=== PATIENT | male | born 2000 | race Caucasian/White ===

== ENCOUNTER 2023-06-03 16:53 | Emergency (ER) | payer SELFPAY ==
[2023-06-03 17:24] VITALS: BP 123/66; PULSE 94; RESP 17; TEMP 36.5; O2SAT 100; BMI 20.9
--- NOTE | 2023-06-03 17:33 | CTR_ITS ---
PROCEDURE INFORMATION: Exam: CT Abdomen And Pelvis With Contrast Exam date and time: 06/03/2023 5:53 PM Age: 23 years old Clinical indication: Abdominal pain; Localized; Right lower quadrant (rlq); Additional info: Abd pain TECHNIQUE: Imaging protocol: Computed tomography of the abdomen and pelvis with contrast. Radiation optimization: All CT scans at this facility use at least one of these dose optimization techniques: automated exposure control; mA and/or kV adjustment per patient size (includes targeted exams where dose is matched to clinical indication); or iterative reconstruction. Contrast material: OMNI 350; Contrast volume: 100 ml; Contrast route: INTRAVENOUS (IV); COMPARISON: No relevant prior studies available. RADIATION DOSE METRICS: Total DLP (mGy-cm): 390.45 FINDINGS: Lungs: Subsegmental bibasilar atelectasis. The visualized lung bases are otherwise grossly clear. Diaphragm: No evidence of diaphragmatic defect. There is fluid filling the esophagus compatible with GERD. Liver: No focal hepatic lesion. Gallbladder and bile ducts: Unremarkable. No intra-hepatic or extra-hepatic biliary dilatation. Pancreas: Unremarkable. Spleen: Unremarkable. Adrenal glands: Unremarkable. Kidneys and ureters: No renal parenchymal abnormality. No hydronephrosis or ureteral stone. Stomach and bowel: No evidence of bowel obstruction or gross perienteric inflammatory changes. There are multiple loops of mildly prominent and thickened small bowel compatible with a nonspecific infectious or inflammatory enteritis. Appendix: Normal appendix. Intraperitoneal space: No evidence of free air or fluid collection. Vasculature: No aneurysmal dilatation or dissection of the abdominal aorta. The celiac trunk, SMA and MARGARET are grossly patent. No evidence of IVC thrombus. The portal vein, SMV and splenic veins are grossly patent. Lymph nodes: No adenopathy. Urinary bladder: Grossly unremarkable. Reproductive: Grossly unremarkable. Bones/joints: No evidence of acute fracture or aggressive osseous lesion. Soft tissues: No evidence of fluid collection or hematoma in the superficial soft tissues. CT/CT abdomen pelvis w con* [id number] IMPRESSION: 1. Findings compatible with an infectious or inflammatory enteritis. 2. Fluid filling the esophagus compatible with GERD.
--- NOTE | 2023-06-03 17:34 | ED_ITS ---
Documented by User: Evelyne Dooley MD 06/03/23 17:35 HPI - Abdominal Pain 2 General: Chief Complaint: Abdominal Pain Stated Complaint: Abd pain/ N/V Time Seen by Provider: 06/03/23 17:29 Source: patient Mode of arrival: ambulatory Limitations: no limitations History of Present Illness: 23-year-old male states been having righ t lower quadrant abdominal pain since yesterday. States that pains have been sharp in nature he rates it an 8 out of 10 currently and they worsen he had vomiting he denies any fevers denies any radiation of his pain. Associated Symptoms: Reports nausea and vomiting; Denies chills, diarrhea, dysuria and fever(s) Review of Systems 2 Const: Denies: fever(s), chills, body aches or change in appetite ENMT: Denies: throat pain or dental pain Card: Denies: chest pain Resp: Denies: dyspnea GI: Reports: abdominal pain, nausea and vomiting; Denies: diarrhea : Denies: dysuria Musc: Denies: neck pain or back pain Skin/Breast: Denies: rash Neuro: Denies: headache(s) Physical Exam 2 Const: COMMON NORMALS: no acute distress, patient oriented x3 and healthy appearing HENMT: COMMON NORMALS: normocephalic and atraumatic HEAD & SCALP: n ormocephalic and atraumatic Neck/C-Spine: COMMON NORMALS: full ROM and supple Chest: COMMONS NORMALS: normal inspection of the chest Resp: COMMON NORMALS: normal respiratory effort and No use of accessory muscles Cardio: COMMON NORMALS: regular rate RATE: regular rate GI: COMMON NORMALS: Normal to inspection, nondistended, normoactive bowel sounds present, Soft to palpation and no masses PALPATION: Yes Soft to palpation and Yes Tenderness to palpation present (GI) Details: RLQ Extremity: COMMON NORMALS: normal to inspection and full ROM Neuro: COMMON NORMALS: patient oriented x3, moves all extremities and no focal motor deficits Psych: COMMON NORMALS: mental status grossly normal, Normal thought process present and cooperative THOUGHT PROCESS: Normal thought process present Skin: COMMON NORMALS: no rashes or lesions noted and no wounds GENERAL SKIN EXAM: no rashes or lesions noted Course 2 Vital Signs: Vital signs: Vital Signs Temperature 97.7 F 06/03/23 17:24 Pulse Rate 75 06/03/23 19:40 Respiratory Rate 15 06/03/23 19:40 Blood Pressure 124/81 06/03/23 19:40 Pulse Oximetry 99 06/03/23 19:40 Oxygen Delivery Me thod Room Air 06/03/23 17:24 MDM - Abdominal Pain Lab Data 06/03/23 17:36 06/03/23 17:36 Labs/Radiology: Radiology Impressions Abdomen/Pelvis CT 06/03/23 17:33 IMPRESSION: 1. Findings compatible with an infectious or inflammatory enteritis. 2. Fluid filling the esophagus compatible with GERD. Laboratory Results WBC 12.02 10^3/uL (3.29-11.43) H 06/03/23 17:36 RBC 5.10 10^6/uL (3.85-5.65) 06/03/23 17:36 Hgb 15.50 g/dL (11.27-16.99) 06/03/23 17:36 Hct 47.0 % (37-53) 06/03/23 17:36 MCV 92.2 fl (82-101) 06/03/23 17:36 MCH 30.4 pg (27-33) 06/03/23 17:36 MCHC 33.0 g/dL (30-55) 06/03/23 17:36 RDW 12.6 % (12.1-15.1) 06/03/23 17:36 Plt Count 256 10^3/cmm (157-399) 06/03/23 17:36 MPV 10.5 fL (7.4-10.4) H 06/03/23 17:36 Neut % (Auto) 94.7 % 06/03/23 17:36 Lymph % (Auto) 0.9 % 06/03/23 17:36 [place] % (Auto) 3.2 % 06/03/23 17:36 Eos % (Auto) 0.8 % 06/03/23 17:36 Baso % (Auto) 0.2 % 06/03/23 17:36 Neut # (Auto) 11.36 10^3/uL (1.8-7.7) H 06/03/23 17:36 Lymph # (Auto) 0.1 10^3/uL (0.8-4.8) L 06/03/23 17:36 [place] # (Auto) 0.4 10^3/uL (0.2-0.9) 06/03/23 17:36 Eos # (Auto) 0.1 10^3/uL (0.0-0.8) 06/03/23 17:36 Baso # (Auto) 0.0 10^3/uL (0.0-0.1) 06/03/23 17:36 Nucleated RBC % (auto) 0 % 06/03/23 17:36 Nucleated RBCs # 0.0 /100WBC 06/03/23 17:36 Sodium 138 mmol/L (136-145) 06/03/23 17:36 Potassium 4.1 mmol/L (3.5-5.1) 06/03/23 17:36 Chloride 101 mmol/L (98-107) 06/03/23 17:36 Carbon Dioxide 27 mmol/L (22-29) 06/03/23 17:36 Anion Gap 14.1 (5-19) 06/03/23 17:36 BUN 13 mg/dL (6-20) 06/03/23 17:36 Creatinine 1.0 mg/dL (0.7-1.2) 06/03/23 17:36 GFR Calculation 92.6 mL/min (90-130) 06/03/23 17:36 Glucose 133 mg/dL (65-115) H 06/03/23 17:36 Calculated Osmolality 288 mOsm/kg (285-295) 06/03/23 17:36 Calcium 9.6 mg/dL (8.5-10.5) 06/03/23 17:36 Total Bilirubin 0.8 mg/dL (0.15-1.2) 06/03/23 17:36 AST 15 U/L (0-40) 06/03/23 17:36 ALT 13 U/L (0-41) 06/03/23 17:36 Alkaline Phosphatase 89 U/L (40-130) 06/03/23 17:36 Total Protein 7.4 g/dL (6.6-8.7) 06/03/23 17:36 Albumin 4.5 g/dL (3.5-5.2) 06/03/23 17:36 Globulin 2.9 g/dL (1.3-4.6) 06/03/23 17:36 Lipase 25 U/L (13-60) 06/03/23 17:36 Discharge Plan Discharge Patient Disposition: Home Clinical Impression: Enteritis Condition: Stable Prescriptions: New ketorolac 10 mg tablet 10 mg PO TID PRN (Reason: pain) Qty: 10 0RF ondansetron 4 mg tablet,disintegrating 4 mg PO Q6H PRN (Reason: nausea and vomiting) Qty: 14 0RF metronidazole 500 mg tablet 500 mg PO BID Qty: 14 0RF ciprofloxacin HCl 500 mg tablet 500 mg PO BID Qty: 14 0RF Discharge Orders: Discharge ED (Routine); Ordered 06/03/23 Ordered By: Nimesh Estevez Patient Instructions: Enteritis (ED), Opioid Safety, Pain Management Activity Restrictions/Additional Instructions: Your CT scan in the emergency department today showed a normal appendix. It did show inflammatory change of your small intestine consistent with what we call an enteritis. This is sometimes due to a virus, other times due to a bacteria. He will be given antibiotics, pain medication and nausea medication. Follow a liquid diet for the next 24 to 48 hours. If you have not vomited in 24 hours, and your pain is significantly less, you may begin to add solid food back into your diet. Return for fever greater than 100 despite 2 doses of antibiotics, worsening pain despite treatment, vomiting liquids or medications, or any other concerning symptoms. See your doctor next week. 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 This patient has right-sided abdominal pain, and vomiting. He is afebrile here. White blood cell count is 12. 95% neutrophils. CT scan shows a normal appendix. There are multiple loops of mildly prominent small bowel with thickening compatible with nonspecific infectious or inflammatory enteritis. Given his white count and left shift, he will be treated with antibiotics although this may be viral. He will get a dose of dexamethasone here for inflammatory changes. Lab Data 06/03/23 17:36 06/03/23 17:36 Labs/Radiology: Radiology Impressions Abdomen/Pelvis CT 06/03/23 17:33 IMPRESSION: 1. Findings compatible with an infectious or inflammatory enteritis. 2. Fluid filling the esophagus compatible with GERD. Laboratory Results WBC 12.02 10^3/uL (3.29-11.43) H 06/03/23 17:36 RBC 5.10 10^6/uL (3.85-5.65) 06/03/23 17:36 Hgb 15.50 g/dL (11.27-16.99) 06/03/23 17:36 Hct 47.0 % (37-53) 06/03/23 17:36 MCV 92.2 fl (82-101) 06/03/23 17:36 MCH 30.4 pg (27-33) 06/03/23 17:36 MCHC 33.0 g/dL (30-55) 06/03/23 17:36 RDW 12.6 % (12.1-15.1) 06/03/23 17:36 Plt Count 256 10^3/cmm (157-399) 06/03/23 17:36 MPV 10.5 fL (7.4-10.4) H 06/03/23 17:36 Neut % (Auto) 94.7 % 06/03/23 17:36 Lymph % (Auto) 0.9 % 06/03/23 17:36 [place] % (Auto) 3.2 % 06/03/23 17:36 Eos % (Auto) 0.8 % 06/03/23 17:36 Baso % (Auto) 0.2 % 06/03/23 17:36 Neut # (Auto) 11.36 10^3/uL (1.8-7.7) H 06/03/23 17:36 Lymph # (Auto) 0.1 10^3/uL (0.8-4.8) L 06/03/23 17:36 [place] # (Auto) 0.4 10^3/uL (0.2-0.9) 06/03/23 17:36 Eos # (Auto) 0.1 10^3/uL (0.0-0.8) 06/03/23 17:36 Baso # (Auto) 0.0 10^3/uL (0.0-0.1) 06/03/23 17:36 Nucleated RBC % (auto) 0 % 06/03/23 17:36 Nucleated RBCs # 0.0 /100WBC 06/03/23 17:36 Sodium 138 mmol/L (136-145) 06/03/23 17:36 Potassium 4.1 mmol/L (3.5-5.1) 06/03/23 17:36 Chloride 101 mmol/L (98-107) 06/03/23 17:36 Carbon Dioxide 27 mmol/L (22-29) 06/03/23 17:36 Anion Gap 14.1 (5-19) 06/03/23 17:36 BUN 13 mg/dL (6-20) 06/03/23 17:36 Creatinine 1.0 mg/dL (0.7-1.2) 06/03/23 17:36 GFR Calculation 92.6 mL/min (90-130) 06/03/23 17:36 Glucose 133 mg/dL (65-115) H 06/03/23 17:36 Calculated Osmolality 288 mOsm/kg (285-295) 06/03/23 17:36 Calcium 9.6 mg/dL (8.5-10.5) 06/03/23 17:36 Total Bilirubin 0.8 mg/dL (0.15-1.2) 06/03/23 17:36 AST 15 U/L (0-40) 06/03/23 17:36 ALT 13 U/L (0-41) 06/03/23 17:36 Alkaline Phosphatase 89 U/L (40-130) 06/03/23 17:36 Total Protein 7.4 g/dL (6.6-8.7) 06/03/23 17:36 Albumin 4.5 g/dL (3.5-5.2) 06/03/23 17:36 Globulin 2.9 g/dL (1.3-4.6) 06/03/23 17:36 Lipase 25 U/L (13-60) 06/03/23 17:36 All radiology interpretation(s) finalized by discharge Discharge Plan Discharge Patient Disposition: Home Clinical Impression: Enteritis Condition: Stable Prescriptions: New ketorolac 10 mg tablet 10 mg PO TID PRN (Reason: pain) Qty: 10 0RF ondansetron 4 mg tablet,disintegrating 4 mg PO Q6H PRN (Reason: nausea and vomiting) Qty: 14 0RF metronidazole 500 mg tablet 500 mg PO BID Qty: 14 0RF ciprofloxacin HCl 500 mg tablet 500 mg PO BID Qty: 14 0RF Discharge Orders: Discharge ED (Routine); Ordered 06/03/23 Ordered By: Nimesh Estevez Patient Instructions: Enteritis (ED), Opioid Safety, Pain Management Activity Restrictions/Additional Instructions: Your CT scan in the emergency department today showed a normal appendix. It did show inflammatory change of your small intestine consistent with what we call an enteritis. This is sometimes due to a virus, other times due to a bacteria. He will be given antibiotics, pain medication and nausea medication. Follow a liquid diet for the next 24 to 48 hours. If you have not vomited in 24 hours, and your pain is significantly less, you may begin to add solid food back into your diet. Return for fever greater than 100 despite 2 doses of antibiotics, worsening pain despite treatment, vomiting liquids or medications, or any other concerning symptoms. See your doctor next week. 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
[2023-06-03] MEDS: sodium chloride 0.9% 1,000 ML 999 ML IV (17:38)
[2023-06-03] MEDS: ondansetron 2 mg/ML SDV 2 mL 4 MG IVP (17:39)
[2023-06-03] MEDS: morphine 4 mg/mL SDV 1 mL IVP ×2 (17:40→18:41)
[2023-06-03 17:41] LABS: Basophils % 0.2 %; Eosinophils # 0.1 10^3/uL (0.0-0.8); Eosinophils % 0.8 %; Lymphocytes # 0.1 10^3/uL (0.8-4.8); Lymphocytes % 0.9 %; Mean Corpuscular Hemoglobin 30.4 pg (27-33); Mean Corpuscular Volume 92.2 fl (82-101); Mean Platelet Volume 10.5 fL (7.4-10.4); Monocytes # 0.4 10^3/uL (0.2-0.9); Monocytes % 3.2 %; Neutrophils # 11.36 10^3/uL (1.8-7.7); Neutrophils % 94.7 %; Nucleated Red Blood Cells % 0 %; Platelet Count 256 10^3/cmm (157-399); Red Cell Distribution Width 12.6 % (12.1-15.1); White Blood Count 12.02 10^3/uL (3.29-11.43)
[2023-06-03 18:00] LABS: Alanine Aminotransferase 13 U/L (0-41); Albumin Level 4.5 g/dL (3.5-5.2); Alkaline Phosphatase 89 U/L (40-130); Anion Gap 14.1 (5-19); Aspartate Amino Transferase 15 U/L (0-40); Blood Urea Nitrogen 13 mg/dL (6-20); Calcium 9.6 mg/dL (8.5-10.5); Carbon Dioxide 27 mmol/L (22-29); Chloride 101 mmol/L (98-107); Creatinine Clr Calc Pharmacy 121.3596; Globulin 2.9 g/dL (1.3-4.6); Glomerular Filtration Rate 92.6 mL/min (90-130); Glucose 133 mg/dL (65-115); Lipase 25 U/L (13-60); Osmolality Calculated 288 mOsm/kg (285-295); Potassium 4.1 mmol/L (3.5-5.1); Sodium 138 mmol/L (136-145); Total Bilirubin 0.8 mg/dL (0.15-1.2); Total Protein 7.4 g/dL (6.6-8.7)
[2023-06-03] MEDS: iohexol 350 mg/mL 500 mL Btl (per mL) IV (18:00)
[2023-06-03] MEDS: ketorolac 30 mg/mL INJ IVP (18:40)
[2023-06-03 18:41] VITALS: RESP 16; O2SAT 98
[2023-06-03] MEDS: dexamethasone 4 mg/mL INJ 8 MG IVP (19:25)
[2023-06-03 19:40] VITALS: BP 124/81; PULSE 75; RESP 15; O2SAT 99
== END 2023-06-03 19:41 | disposition home or self-care (01) ==
PROVIDERS: Emergency Medicine; Emergency Provider Emergency Medicine
DX: K52.9 Noninfective gastroenteritis and colitis, unspecified (principal)
CPT/HCPCS: 74177; 80053; 83690; 85025; 96374; 96375; 96376; 99285; J1100; J1885; J2270; J2405; J7030; Q9967

== ENCOUNTER 2023-06-05 03:08 | Emergency (ER) | payer SELFPAY ==
[2023-06-05] VITALS (9 sets, daily range): BP systolic 109–141; BP diastolic 61–89; PULSE 58–101; RESP 14–20; TEMP 36.6; O2SAT 95–99; BMI 20.9
[2023-06-05 03:47] LABS: Basophils % 0.3 %; Eosinophils # 0.3 10^3/uL (0.0-0.8); Hematocrit 41.9 % (37-53); Lymphocytes % 13.5 %; Mean Corpuscular HGB Conc 34.1 g/dL (30-55); Mean Corpuscular Hemoglobin 30.8 pg (27-33); Mean Corpuscular Volume 90.1 fl (82-101); Mean Platelet Volume 10.8 fL (7.4-10.4); Monocytes # 0.8 10^3/uL (0.2-0.9); Monocytes % 11.6 %; Neutrophils # 5.11 10^3/uL (1.8-7.7); Neutrophils % 70.3 %; Nucleated Red Blood Cells % 0 %; Platelet Count 256 10^3/cmm (157-399); Red Blood Count 4.65 10^6/uL (3.85-5.65); Red Cell Distribution Width 12.4 % (12.1-15.1); White Blood Count 7.26 10^3/uL (3.29-11.43)
[2023-06-05 04:02] LABS: Alanine Aminotransferase 15 U/L (0-41); Alkaline Phosphatase 78 U/L (40-130); Anion Gap 17.1 (5-19); Aspartate Amino Transferase 17 U/L (0-40); Blood Urea Nitrogen 11 mg/dL (6-20); Carbon Dioxide 25 mmol/L (22-29); Chloride 100 mmol/L (98-107); Creatinine Clr Calc Pharmacy 121.3596; Glomerular Filtration Rate 92.6 mL/min (90-130); Glucose 109 mg/dL (65-115); Lipase 33 U/L (13-60); Osmolality Calculated 288 mOsm/kg (285-295); Potassium 3.1 mmol/L (3.5-5.1); Sodium 139 mmol/L (136-145); Total Bilirubin 0.4 mg/dL (0.15-1.2)
[2023-06-05] MEDS: ondansetron 2 mg/ML SDV 2 mL 4 MG IVP (04:12)
[2023-06-05 04:13] LABS: Gastricult Occult Blood Positive (Negative)
[2023-06-05] MEDS: sodium chloride 0.9% 1,000 ML 999 ML IV (04:13)
[2023-06-05 04:16] LABS: Amphetamines Screen Urine Positive (Negative); Barbiturates Screen Urine Negative (Negative); Benzodiazepines Screen Urine Negative (Negative); Cocaine Screen Urine Negative (Negative); Opiate Screen Urine Positive (Negative); PCP Screen Urine Negative (Negative); THC Screen Urine Positive (Negative)
[2023-06-05 04:34] LABS: Bilirubin Urine 1+ (Negative); Blood Urine Neg (Negative); Glucose Urine UA Norm (Normal); Ketones Urine 1+ (Negative); Leukocyte Esterase Urine Trace (Negative); Nitrate Urine Negative (Negative); Protein Urine 1+ (Negative); Urine Appearance Clear (CLEAR); Urine Color Dark Yellow (Yellow); Urobilinogen Urine 8 mg/dL (Negative); pH Urine 6 (5-7)
[2023-06-05 04:35] LABS: Add Urine Culture? No; Bacteria Urine TRACE /hpf; Mucus Urine 3+ /hpf; RBC Urine 0-4 /hpf (0-2); WBC Urine 0-4 /hpf (0-5)
--- NOTE | 2023-06-05 07:02 | ED_ITS ---
HPI - Abdominal Pain 2 General: Chief Complaint: Abdominal Pain Stated Complaint: right abdomen pain,n/v, fever Time Seen by Provider: 06/05/23 03:36 History of Present Illness: 23-year-old male presents emergency depa rtment with complaints of feeling sick for the previous 3 days. He states that he has been seen here previously and diagnosed with gastroenteritis after receiving a CAT scan and ER evaluation at that time. He states he initially felt better yesterday but then felt like he became worse. He states he is having several episodes of nausea and vomiting and abdominal pain. He denies any recreational or illicit drug use. He states he has vomited several times and feels as though he is intermittently vomiting blood. Associated Symptoms: Reports hematemesis, nausea and vomiting Review of Systems 2 General: Reports: 10 or more systems reviewed and unremarkable except in HPI and below Card: Denies: chest pain or irregular heart rhythm Resp: Denies: dyspnea GI: Reports: abdominal pain, nausea, vomiting and hematemesis Physical Exam 2 Narrative: EXAM NARRATIVE: Constitutional: the patient appears well nourished and of normal development. Vital signs as documented. No acute distress at present. Alert and oriented-to person, place, time and situation. Head, eyes, ears, nose, mouth, throat: Normocephalic, atraumatic. Pupils-equal, round, reactive to light. No scleral icterus. Normal-appearing external ears. Normal appearing nasal turbinates, no drainage. No obvious oral lesions, posterior oropharynx without erythema or exudates. Neck: Supple, trachea is midline, no lymphadenopathy, no jugular venous distension, thyromegaly, or carotid bruits. Carotid upstrokes are brisk bilaterally. Lungs: clear to auscultation to all lung sherman. Symmetrical rise and fall of chest, no obvious signs of increased work of breathing at present. Cardiac: Regular rate and rhythm, positive S1, S2. No murmurs, rubs or gallops that I can appreciate Abdomen: Soft, non-tender to palpation, normal active bowel sounds to all quadrants. No palpable masses, no organomegaly and abdominal bruits. Extremities: 2+ pulses in the upper extremities that are equal bilaterally, 2+ pulses in the lower extremities that are equal bilaterally. Non-edematous. Moves all extremities well, sensation to all extremities are noted. Skin: Warm, dry, intact. Course 2 Vital Signs: Vital signs: Vital Signs Temperature 97.9 F 06/05/23 03:22 Pulse Rate 65 06/05/23 06:30 Respiratory Rate 15 06/05/23 06:30 Blood Pressure 141/83 06/05/23 06:30 Pulse Oximetry 97 06/05/23 06:30 Oxygen Delivery Me thod Room Air 06/05/23 06:30 MDM - Abdominal Pain Medical Decision Making Physical exam completed and documented, I will obtain laboratory evaluation to include a CBC, CMP, lipase, urinalysis, and a Gastroccult to evaluate for possible differential diagnosis of bowel obstruction, incarcerated hernia, abdominal wall strain, abdominal wall hematoma, constipation., Colitis, acute appendicitis, diverticulitis. Medical Records I reviewed the patient's medical records. Lab Data I reviewed the patient's lab results. 06/05/23 03:35 06/05/23 03:35 Labs/Radiology: Laboratory Results WBC 7.26 10^3/uL (3.29-11.43) 06/05/23 03:35 RBC 4.65 10^6/uL (3.85-5.65) 06/05/23 03:35 Hgb 14.30 g/dL (11.27-16.99) 06/05/23 03:35 Hct 41.9 % (37-53) 06/05/23 03:35 MCV 90.1 fl (82-101) 06/05/23 03:35 MCH 30.8 pg (27-33) 06/05/23 03:35 MCHC 34.1 g/dL (30-55) 06/05/23 03:35 RDW 12.4 % (12.1-15.1) 06/05/23 03:35 Plt Count 256 10^3/cmm (157-399) 06/05/23 03:35 MPV 10.8 fL (7.4-10.4) H 06/05/23 03:35 Neut % (Auto) 70.3 % 06/05/23 03:35 Lymph % (Auto) 13.5 % 06/05/23 03:35 [place] % (Auto) 11.6 % 06/05/23 03:35 Eos % (Auto) 4.0 % 06/05/23 03:35 Baso % (Auto) 0.3 % 06/05/23 03:35 Neut # (Auto) 5.11 10^3/uL (1.8-7.7) 06/05/23 03:35 Lymph # (Auto) 1.0 10^3/uL (0.8-4.8) 06/05/23 03:35 [place] # (Auto) 0.8 10^3/uL (0.2-0.9) 06/05/23 03:35 Eos # (Auto) 0.3 10^3/uL (0.0-0.8) 06/05/23 03:35 Baso # (Auto) 0.0 10^3/uL (0.0-0.1) 06/05/23 03:35 Nucleated RBC % (auto) 0 % 06/05/23 03:35 Nucleated RBCs # 0.0 /100WBC 06/05/23 03:35 Sodium 139 mmol/L (136-145) 06/05/23 03:35 Potassium 3.1 mmol/L (3.5-5.1) L 06/05/23 03:35 Chloride 100 mmol/L (98-107) 06/05/23 03:35 Carbon Dioxide 25 mmol/L (22-29) 06/05/23 03:35 Anion Gap 17.1 (5-19) 06/05/23 03:35 BUN 11 mg/dL (6-20) 06/05/23 03:35 Creatinine 1.0 mg/dL (0.7-1.2) 06/05/23 03:35 GFR Calculation 92.6 mL/min (90-130) 06/05/23 03:35 Glucose 109 mg/dL (65-115) 06/05/23 03:35 Calculated Osmolality 288 mOsm/kg (285-295) 06/05/23 03:35 Calcium 9.0 mg/dL (8.5-10.5) 06/05/23 03:35 Total Bilirubin 0.4 mg/dL (0.15-1.2) 06/05/23 03:35 AST 17 U/L (0-40) 06/05/23 03:35 ALT 15 U/L (0-41) 06/05/23 03:35 Alkaline Phosphatase 78 U/L (40-130) 06/05/23 03:35 Total Protein 7.0 g/dL (6.6-8.7) 06/05/23 03:35 Albumin 4.0 g/dL (3.5-5.2) 06/05/23 03:35 Globulin 3.0 g/dL (1.3-4.6) 06/05/23 03:35 Lipase 33 U/L (13-60) 06/05/23 03:35 Urine Color Dark yellow (Yellow) 06/05/23 04:00 Urine Appearance Clear (CLEAR) 06/05/23 04:00 Urine pH 6 (5-7) 06/05/23 04:00 Ur Specific [place] 1.020 (1.005-1.030) 06/05/23 04:00 Urine Protein 1+ (Negative) H 06/05/23 04:00 Urine Glucose (UA) Norm (Normal) 06/05/23 04:00 Urine Ketones 1+ (Negative) H 06/05/23 04:00 Urine Blood Neg (Negative) 06/05/23 04:00 Urine Nitrate Negative (Negative) 06/05/23 04:00 Urine Bilirubin 1+ (Negative) H 06/05/23 04:00 Urine Urobilinogen 8 mg/dL (Negative) H 06/05/23 04:00 Ur Leukocyte Esterase Trace (Negative) H 06/05/23 04:00 Urine RBC 0-4 /hpf (0-2) H 06/05/23 04:00 Urine WBC 0-4 /hpf (0-5) H 06/05/23 04:00 Ur Squamous Epith Cells None /hpf (0-5) 06/05/23 04:00 Amorphous Sediment Not Reportable 06/05/23 04:00 Urine Bacteria Trace /hpf (NONE) 06/05/23 04:00 Urine Mucus 3+ /hpf 06/05/23 04:00 Gastric Occult Blood Positive (Negative) H 06/05/23 03:51 Urine Opiates Screen Positive ng/mL (Negative) H 06/05/23 04:00 Ur Barbiturates Screen Negative ng/mL (Negative) 06/05/23 04:00 Ur Phencyclidine Scrn Negative ng/mL (Negative) 06/05/23 04:00 Ur Amphetamines Screen Positive ng/mL (Negative) H 06/05/23 04:00 U Benzodiazepines Scrn Negative ng/mL (Negative) 06/05/23 04:00 Urine Cocaine Screen Negative ng/mL (Negative) 06/05/23 04:00 U Marijuana (THC) Screen Positive ng/mL (Negative) H 06/05/23 04:00 No radiology studies performed this visit Discharge Plan Discharge Patient Disposition: Home Clinical Impression: Methamphetamine abuse, Abdominal pain, Nausea & vomiting, Cannabis hyperemesis syndrome concurrent with and due to cannabis abuse, Gastritis Condition: Stable Prescriptions: New sucralfate [Carafate] 1 gram tablet 1 g PO TID 28 Days Qty: 84 0RF No Action ketorolac 10 mg tablet 10 mg PO TID PRN (Reason: pain) Qty: 10 0RF Rx Instructions: hasnt started as of 06/05/23-rx written 06/03/23 ondansetron 4 mg tablet,disintegrating 4 mg PO Q6H PRN (Reason: nausea and vomiting) Qty: 14 0RF Rx Instructions: hasnt started as of 06/05/23-rx written 06/03/23 metronidazole 500 mg tablet 500 mg PO BID Qty: 14 0RF Rx Instructions: hasnt started as of 06/05/23-rx written 06/03/23 ciprofloxacin HCl 500 mg tablet 500 mg PO BID Qty: 14 0RF Rx Instructions: hasnt started as of 06/05/23-rx written 06/03/23 Discharge Orders: Discharge ED (Routine); Ordered 06/05/23 Ordered By: Orlando Nash Referrals: Maximilian Begum DO [Physician] - Discharge Diet: Usual diet Discharge Activity: Resume usual activity Patient Instructions: Abdominal Pain (ED), Opioid Safety, Pain Management Coding Level of Care Code 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
--- NOTE | 2023-06-05 07:04 | PC.PHAR ---
pt states he takes no otc or prescription medications-medications entered are from er visit on 06/03/23 pt states not started as of 06/05/23 pt states hasnt gotten filled
== END 2023-06-05 07:44 | disposition home or self-care (01) ==
PROVIDERS: Emergency Provider Internal Medicine
DX: R11.2 Nausea with vomiting, unspecified (principal); F12.10 Cannabis abuse, uncomplicated; K29.70 Gastritis, unspecified, without bleeding; F15.10 Other stimulant abuse, uncomplicated
CPT/HCPCS: 80053; 80306; 81001; 82271; 83690; 85025; 96374; 99284; J2405; J7030

== ENCOUNTER 2023-06-06 23:07 | Emergency (ER) | payer SELFPAY ==
[2023-06-06 23:19] VITALS: BP 138/79; PULSE 94; RESP 18; TEMP 36.6; O2SAT 100
--- NOTE | 2023-06-06 23:22 | ED_ITS ---
Documented by User: ELIEZER Pinedo 06/07/23 00:58 HPI - Abdominal Pain 2 General: Chief Complaint: Abdominal Pain Stated Complaint: Right lower abd pain vom Time Seen by Provider: 06/06/23 23:15 History of Present Illness: Patient presents today with persistent nausea vomiting and diarrhea for the last 2 days. Patient has been seen starting 4 days ago for similar symptoms. Patient was diagnosed with enteritis and reflux disease. On the second visit it was noted the patient was positive for methamphetamines and cannabis. Patient has not yet to have medications filled for the treatment of his illness as he cannot afford the medicine through his pharmacy. Patient does not have any insurance. Patient appears unwell but not toxic. Patient appears in mild to moderate pain. Female significant other is concerned that he may have appendicitis. Associated Symptoms: Reports diarrhea, nausea and vomiting Review of Systems 2 General: Reports: 10 or more systems reviewed and unremarkable except in HPI and below GI: Reports: abdominal pain, nausea, vomiting and diarrhea Physical Exam 2 Const: COMMON NORMALS: alert HENMT: COMMON NORMALS: normocephalic HEAD & SCALP: normocephalic Neck/C-Spine: COMMON NORMALS: full ROM Resp: COMMON NORMALS: normal respiratory effort and clear to auscultation bilaterally AUSCULTATION: clear to auscultation bilaterally Cardio: COMMON NORMALS: regular rate RATE: regular rate GI: INSPECTION: Yes normal to inspection PALPATION: Yes Tenderness to palpation present (GI) Back/Pelvis: COMMON NORMALS: thoracic and lumbar spine normal to inspection Extremity: COMMON NORMALS: no pedal edema Neuro: SENSORIUM/ORIENTATION: Yes alert Skin: COMMON NORMALS: turgor normal GENERAL SKIN EXAM: turgor normal Course 2 Vital Signs: Vital signs: Vital Signs Temperature 98 F 06/06/23 23:19 Pulse Rate 67 06/07/23 02:36 Respiratory Rate 16 06/07/23 02:36 Blood Pressure 128/79 06/07/23 02:36 Pulse Oximetry 98 06/07/23 02:36 Oxygen Delivery Me thod Room Air 06/07/23 01:31 MDM - Abdominal Pain Medical Decision Making 23-year-old male patient comes in today for complaints of abdominal pain with nausea and vomiting and diarrhea. Patient been ill for about 4 days. Review of the record noted that patient had a previous CT scan that noted enteritis and reflux disease. Patient also had drug testing that showed positive THC and methamphetamines. Patient significant other reports that patient not been able to hold any fluids down and has worsened. Patient been not able to afford medications either for the treatment. Patient's abdomen is flat with generalized tenderness. Hyperactive bowel sounds. Differential diagnosis includes not limited to bowel perforation, enteritis, dehydration, hyperemesis syndrome, substance use disorder. CBC and CMP were normal. Lipase was normal. CT of the abdomen showed enterocolitis. Patient's female significant other was upset wanting patient admitted. I discussed concerns with hospitalist and at this time he is not seeing need for admission since patient was not taking medications as prescribed for his condition and no deterioration is noted in patient's condition with labs and repeat imaging today. I reviewed this with patient recommending that he get prescriptions filled at [facility] pharmacy. Patient was given a dose of Flagyl and a dose of Cipro in house. Patient was prescribed famotidine and promethazine for his symptom control. Patient was also represcribed his Cipro and Flagyl with all prescription being sent to [facility] for affordability. Lab Data 06/06/23 23:35 06/06/23 23:35 Labs/Radiology: Radiology Impressions Abdomen/Pelvis CT 06/06/23 23:30 IMPRESSION: 1. No evidence of acute appendicitis. 2. There is mild distension of the small and large bowel with some air-fluid levels, nonspecific, but can be seen with enterocolitis in the appropriate clinical. No bowel obstruction. 3. Mild bladder wall thickening, which could be related to underdistention or nonspecific cystitis. Laboratory Results WBC 6.14 10^3/uL (3.29-11.43) 06/06/23 23: RBC 4.76 10^6/uL (3.85-5.65) 06/06/23 23: Hgb 14.50 g/dL (11.27-16.99) 06/06/23: Hct 43.3 % (37-53) 06/06/23: MCV 91.0 fl (82-101) 06/06/23 23: MCH 30.5 pg (27-33) 06/06/23: MCHC 33.5 g/dL (30-55) 06/06/23 23: RDW 12.4 % (12.1-15.1) 06/06/23 23:35 Plt Count 248 10^3/cmm (157-399) 06/06/23 23:35 MPV 10.5 fL (7.4-10.4) H 06/06/23 23:35 Neut % (Auto) 63.4 % 06/06/23 23:35 Lymph % (Auto) 19.2 % 06/06/23 23:35 [place] % (Auto) 11.6 % 06/06/23 23:35 Eos % (Auto) 4.7 % 06/06/23 23:35 Baso % (Auto) 0.8 % 06/06/23 23:35 Neut # (Auto) 3.89 10^3/uL (1.8-7.7) 06/06/23 23:35 Lymph # (Auto) 1.2 10^3/uL (0.8-4.8) 06/06/23 23:35 [place] # (Auto) 0.7 10^3/uL (0.2-0.9) 06/06/23 23:35 Eos # (Auto) 0.3 10^3/uL (0.0-0.8) 06/06/23 23:35 Baso # (Auto) 0.1 10^3/uL (0.0-0.1) 06/06/23 23:35 Nucleated RBC % (auto) 0 % 06/06/23 23:35 Nucleated RBCs # 0.0 /100WBC 06/06/23 23:35 Sodium 142 mmol/L (136-145) 06/06/23 23:35 Potassium 3.7 mmol/L (3.5-5.1) 06/06/23 23:35 Chloride 104 mmol/L (98-107) 06/06/23 23:35 Carbon Dioxide 26 mmol/L (22-29) 06/06/23 23:35 Anion Gap 15.7 (5-19) 06/06/23 23:35 BUN 9 mg/dL (6-20) 06/06/23 23:35 Creatinine 0.9 mg/dL (0.7-1.2) 06/06/23 23:35 GFR Calculation 104.6 mL/min (90-130) 06/06/23 23:35 Glucose 121 mg/dL (65-115) H 06/06/23 23:35 Calculated Osmolality 294 mOsm/kg (285-295) 06/06/23 23:35 Calcium 9.2 mg/dL (8.5-10.5) 06/06/23 23:35 Total Bilirubin 0.4 mg/dL (0.15-1.2) 06/06/23 23:35 AST 13 U/L (0-40) 06/06/23 23:35 ALT 11 U/L (0-41) 06/06/23 23:35 Alkaline Phosphatase 74 U/L (40-130) 06/06/23 23:35 Total Protein 6.9 g/dL (6.6-8.7) 06/06/23 23:35 Albumin 4.1 g/dL (3.5-5.2) 06/06/23 23:35 Globulin 2.8 g/dL (1.3-4.6) 06/06/23 23:35 Lipase 36 U/L (13-60) 06/06/23 23:35 All radiology interpretation(s) finalized by discharge Discharge Plan Discharge Patient Disposition: Home Clinical Impression: Enterocolitis Condition: Stable Prescriptions: New promethazine 12.5 mg tablet 12.5 mg PO Q4H PRN (Reason: nausea and vomiting) Qty: 20 0RF famotidine 40 mg tablet 40 mg PO BID Qty: 30 0RF Continued metronidazole 500 mg tablet 500 mg PO BID Qty: 14 0RF Rx Instructions: hasnt started as of 06/05/23-rx written 06/03/23 ciprofloxacin HCl 500 mg tablet 500 mg PO BID Qty: 14 0RF Rx Instructions: hasnt started as of 06/05/23-rx written 06/03/23 Discontinued sucralfate [Carafate] 1 gram tablet 1 g PO TID 28 Days Qty: 84 0RF ketorolac 10 mg tablet 10 mg PO TID PRN (Reason: pain) Qty: 10 0RF Rx Instructions: hasnt started as of 06/05/23-rx written 06/03/23 ondansetron 4 mg tablet,disintegrating 4 mg PO Q6H PRN (Reason: nausea and vomiting) Qty: 14 0RF Rx Instructions: hasnt started as of 06/05/23-rx written 06/03/23 Discharge Orders: Discharge ED (Routine); Ordered 06/07/23 Ordered By: Abe Gonzalez Discharge Diet: Advance as tolerated Patient Instructions: Enteritis (ED) Activity Restrictions/Additional Instructions: Take medications as directed. Use promethazine as needed for nausea and vomiting. Clear liquid diet until your abdominal pain resolves. Follow-up with primary care in 2 days for recheck. Return to ED for new concerns. Coding Level of Care Code ED Education Program Associate for [facility] Documented by User: Orlando Nash MD 06/07/23 04:20 HPI - Abdominal Pain 2 General: Chief Complaint: Abdominal Pain Stated Complaint: Right lower abd pain vom Time Seen by Provider: 06/06/23 23:15 Course 2 Vital Signs: Vital signs: Vital Signs Temperature 98 F 06/06/23 23:19 Pulse Rate 67 06/07/23 02:36 Respiratory Rate 16 06/07/23 02:36 Blood Pressure 128/79 06/07/23 02:36 Pulse Oximetry 98 06/07/23 02:36 Oxygen Delivery Me thod Room Air 06/07/23 01:31 MDM - Abdominal Pain Medical Decision Making 23-year-old male patient comes in today for complaints of abdominal pain with nausea and vomiting and diarrhea. Patient been ill for about 4 days. Review of the record noted that patient had a previous CT scan that noted enteritis and reflux disease. Patient also had drug testing that showed positive THC and methamphetamines. Patient significant other reports that patient not been able to hold any fluids down and has worsened. Patient been not able to afford medications either for the treatment. Patient's abdomen is flat with generalized tenderness. Hyperactive bowel sounds. Differential diagnosis includes not limited to bowel perforation, enteritis, dehydration, hyperemesis syndrome, substance use disorder. CBC and CMP were normal. Lipase was normal. CT of the abdomen showed enterocolitis. Patient's female significant other was upset wanting patient admitted. I discussed concerns with hospitalist and at this time he is not seeing need for admission since patient was not taking medications as prescribed for his condition and no deterioration is noted in patient's condition with labs and repeat imaging today. I reviewed this with patient recommending that he get prescriptions filled at [facility] pharmacy. Patient was given a dose of Flagyl and a dose of Cipro in house. Patient was prescribed famotidine and promethazine for his symptom control. Patient was also represcribed his Cipro and Flagyl with all prescription being sent to [facility] for affordability. Attending physician attestation I discussed the patient's history of present illness, physical exam findings, pertinent labs, pertinent radiographic exams and plan of care with the midlevel provider. I did personally have a [id number] evaluation and discussion with the patient regarding the plan of care. Medical Records I reviewed the patient's medical records. Lab Data I reviewed the patient's lab results. 06/06/23 23:35 06/06/23 23:35 Labs/Radiology: Radiology Impressions Abdomen/Pelvis CT 06/06/23 23:30 IMPRESSION: 1. No evidence of acute appendicitis. 2. There is mild distension of the small and large bowel with some air-fluid levels, nonspecific, but can be seen with enterocolitis in the appropriate clinical. No bowel obstruction. 3. Mild bladder wall thickening, which could be related to underdistention or nonspecific cystitis. Laboratory Results WBC 6.14 10^3/uL (3.29-11.43) 06/06/23 23:35 RBC 4.76 10^6/uL (3.85-5.65) 06/06/23 23:35 Hgb 14.50 g/dL (11.27-16.99) 06/06/23 23:35 Hct 43.3 % (37-53) 06/06/23 23:35 MCV 91.0 fl (82-101) 06/06/23 23:35 MCH 30.5 pg (27-33) 06/06/23 23:35 MCHC 33.5 g/dL (30-55) 06/06/23 23:35 RDW 12.4 % (12.1-15.1) 06/06/23 23:35 Plt Count 248 10^3/cmm (157-399) 06/06/23 23:35 MPV 10.5 fL (7.4-10.4) H 06/06/23 23:35 Neut % (Auto) 63.4 % 06/06/23 23:35 Lymph % (Auto) 19.2 % 06/06/23 23:35 [place] % (Auto) 11.6 % 06/06/23 23:35 Eos % (Auto) 4.7 % 06/06/23 23:35 Baso % (Auto) 0.8 % 06/06/23 23:35 Neut # (Auto) 3.89 10^3/uL (1.8-7.7) 06/06/23 23:35 Lymph # (Auto) 1.2 10^3/uL (0.8-4.8) 06/06/23 23:35 [place] # (Auto) 0.7 10^3/uL (0.2-0.9) 06/06/23 23:35 Eos # (Auto) 0.3 10^3/uL (0.0-0.8) 06/06/23 23:35 Baso # (Auto) 0.1 10^3/uL (0.0-0.1) 06/06/23 23:35 Nucleated RBC % (auto) 0 % 06/06/23 23:35 Nucleated RBCs # 0.0 /100WBC 06/06/23 23:35 Sodium 142 mmol/L (136-145) 06/06/23 23:35 Potassium 3.7 mmol/L (3.5-5.1) 06/06/23 23:35 Chloride 104 mmol/L (98-107) 06/06/23 23:35 Carbon Dioxide 26 mmol/L (22-29) 06/06/23 23:35 Anion Gap 15.7 (5-19) 06/06/23 23:35 BUN 9 mg/dL (6-20) 06/06/23 23:35 Creatinine 0.9 mg/dL (0.7-1.2) 06/06/23 23:35 GFR Calculation 104.6 mL/min (90-130) 06/06/23 23:35 Glucose 121 mg/dL (65-115) H 06/06/23 23:35 Calculated Osmolality 294 mOsm/kg (285-295) 06/06/23 23:35 Calcium 9.2 mg/dL (8.5-10.5) 06/06/23 23:35 Total Bilirubin 0.4 mg/dL (0.15-1.2) 06/06/23 23:35 AST 13 U/L (0-40) 06/06/23 23:35 ALT 11 U/L (0-41) 06/06/23 23:35 Alkaline Phosphatase 74 U/L (40-130) 06/06/23 23:35 Total Protein 6.9 g/dL (6.6-8.7) 06/06/23 23:35 Albumin 4.1 g/dL (3.5-5.2) 06/06/23 23:35 Globulin 2.8 g/dL (1.3-4.6) 06/06/23 23:35 Lipase 36 U/L (13-60) 06/06/23 23:35 Discharge Plan Discharge Patient Disposition: Home Clinical Impression: Enterocolitis Condition: Stable Prescriptions: New promethazine 12.5 mg tablet 12.5 mg PO Q4H PRN (Reason: nausea and vomiting) Qty: 20 0RF famotidine 40 mg tablet 40 mg PO BID Qty: 30 0RF Continued metronidazole 500 mg tablet 500 mg PO BID Qty: 14 0RF Rx Instructions: hasnt started as of 06/05/23-rx written 06/03/23 ciprofloxacin HCl 500 mg tablet 500 mg PO BID Qty: 14 0RF Rx Instructions: hasnt started as of 06/05/23-rx written 06/03/23 Discontinued sucralfate [Carafate] 1 gram tablet 1 g PO TID 28 Days Qty: 84 0RF ketorolac 10 mg tablet 10 mg PO TID PRN (Reason: pain) Qty: 10 0RF Rx Instructions: hasnt started as of 06/05/23-rx written 06/03/23 ondansetron 4 mg tablet,disintegrating 4 mg PO Q6H PRN (Reason: nausea and vomiting) Qty: 14 0RF Rx Instructions: hasnt started as of 06/05/23-rx written 06/03/23 Discharge Orders: Discharge ED (Routine); Ordered 06/07/23 Ordered By: Abe Gonzalez Discharge Diet: Advance as tolerated Patient Instructions: Enteritis (ED) Activity Restrictions/Additional Instructions: Take medications as directed. Use promethazine as needed for nausea and vomiting. Clear liquid diet until your abdominal pain resolves. Follow-up with primary care in 2 days for recheck. Return to ED for new concerns. Coding Level of Care Code ED Education Program Associate for [facility]
--- NOTE | 2023-06-06 23:30 | CTR_ITS ---
PROCEDURE INFORMATION: Exam: CT Abdomen And Pelvis Without Contrast Exam date and time: 06/06/2023 11:42 PM Age: 23 years old Clinical indication: Abdominal pain; Localized; Right lower quadrant (rlq); Additional info: Abd pain, TECHNIQUE: Imaging protocol: Computed tomography of the abdomen and pelvis without contrast. Radiation optimization: All CT scans at this facility use at least one of these dose optimization techniques: automated exposure control; mA and/or kV adjustment per patient size (includes targeted exams where dose is matched to clinical indication); or iterative reconstruction. COMPARISON: CT abdomen pelvis w con* [id number] 06/03/2023 5:53 PM RADIATION DOSE METRICS: Total DLP (mGy-cm): 400.8 FINDINGS: Liver: Liver is unremarkable. Gallbladder and bile ducts: No calcified gallstones. No gallbladder wall thickening or pericholecystic fluid. No biliary ductal dilation. Pancreas: Unremarkable unenhanced appearance of the pancreas. Spleen: Spleen is unremarkable. Adrenal glands: No adrenal nodules. Kidneys and ureters: Punctate nonobstructing right renal calculus. No hydroureteronephrosis. Stomach and bowel: Stomach is mildly distended. No bowel obstruction. Moderate colonic stool burden. Mild distension of the small bowel with air-fluid levels in both large and small bowel. Appendix: No evidence of appendicitis. Intraperitoneal space: No free air. No significant fluid collection. Vasculature: Limited evaluation without IV contrast. No aneurysm. Lymph nodes: No enlarged lymph nodes. Urinary bladder: There is mild bladder wall thickening, which could be related to underdistention or nonspecific cystitis. Reproductive: Unremarkable unenhanced appearance as visualized. Bones/joints: No acute fracture. No aggressive osseous lesions. Soft tissues: Unremarkable. CT/CT abdomen pelvis wo con [id number] IMPRESSION: 1. No evidence of acute appendicitis. 2. There is mild distension of the small and large bowel with some air-fluid levels, nonspecific, but can be seen with enterocolitis in the appropriate clinical. No bowel obstruction. 3. Mild bladder wall thickening, which could be related to underdistention or nonspecific cystitis.
[2023-06-06 23:42] LABS: Basophils # 0.1 10^3/uL (0.0-0.1); Basophils % 0.8 %; Eosinophils # 0.3 10^3/uL (0.0-0.8); Eosinophils % 4.7 %; Hematocrit 43.3 % (37-53); Lymphocytes # 1.2 10^3/uL (0.8-4.8); Lymphocytes % 19.2 %; Mean Corpuscular HGB Conc 33.5 g/dL (30-55); Mean Corpuscular Hemoglobin 30.5 pg (27-33); Mean Platelet Volume 10.5 fL (7.4-10.4); Monocytes # 0.7 10^3/uL (0.2-0.9); Monocytes % 11.6 %; Neutrophils # 3.89 10^3/uL (1.8-7.7); Neutrophils % 63.4 %; Nucleated Red Blood Cells % 0 %; Platelet Count 248 10^3/cmm (157-399); Red Blood Count 4.76 10^6/uL (3.85-5.65); Red Cell Distribution Width 12.4 % (12.1-15.1); White Blood Count 6.14 10^3/uL (3.29-11.43)
[2023-06-06] MEDS: sodium chloride 0.9% 1,000 ML 999 ML IV (23:42)
[2023-06-06] MEDS: haloperidol inj 5 mg/mL INJ 1 mL IVP (23:42)
[2023-06-06] MEDS: famotidine 20 mg/2 mL INJ 40 MG IVP (23:42)
[2023-06-07 00:04] LABS: Alanine Aminotransferase 11 U/L (0-41); Albumin Level 4.1 g/dL (3.5-5.2); Alkaline Phosphatase 74 U/L (40-130); Anion Gap 15.7 (5-19); Aspartate Amino Transferase 13 U/L (0-40); Blood Urea Nitrogen 9 mg/dL (6-20); Calcium 9.2 mg/dL (8.5-10.5); Carbon Dioxide 26 mmol/L (22-29); Chloride 104 mmol/L (98-107); Creatinine Clr Calc Pharmacy 133.2059; Globulin 2.8 g/dL (1.3-4.6); Glomerular Filtration Rate 104.6 mL/min (90-130); Glucose 121 mg/dL (65-115); Lipase 36 U/L (13-60); Osmolality Calculated 294 mOsm/kg (285-295); Potassium 3.7 mmol/L (3.5-5.1); Sodium 142 mmol/L (136-145); Total Bilirubin 0.4 mg/dL (0.15-1.2); Total Protein 6.9 g/dL (6.6-8.7)
[2023-06-07] MEDS: sodium chloride 0.9% 1,000 ML 999 ML IV (00:19)
[2023-06-07] MEDS: metroNIDAZOLE IV 500 MG/100 ML PREMIX 100 MG IV (00:34)
[2023-06-07 00:50] VITALS: PULSE 64; RESP 14; O2SAT 98
[2023-06-07] MEDS: ciprofloxacin 400 MG/200 ML PREMIX 200 MG IV (01:25)
[2023-06-07 01:31] VITALS: BP 140/82; PULSE 66; RESP 16; O2SAT 98
[2023-06-07 02:36] VITALS: BP 128/79; PULSE 67; RESP 16; O2SAT 98
== END 2023-06-07 02:38 | disposition home or self-care (01) ==
PROVIDERS: Emergency Provider Nurse Practitioner Family
DX: K52.9 Noninfective gastroenteritis and colitis, unspecified (principal)
CPT/HCPCS: 74176; 80053; 83690; 85025; 96365; 96367; 96375; 99285; J0744; J1630; J3490; J7030